=== PATIENT | male | born 1950 | race Caucasian/White ===

== ENCOUNTER 2025-07-26 17:25 | Emergency (ER) | payer OTHER, SELFPAY ==
--- NOTE | ~2025-07-26 | XR_ITS ---
EXAMINATION: XR chest 2V, 07/26/2025 18:50 METER INSTALLER AND REMOVER HISTORY: weakness COMPARISON: No comparisons available. Technique: 2 views obtained. Findings: The lungs are clear, no effusion. No pneumothorax. Heart is normal size. Mediastinal and hilar contours are within normal limits. Bony thorax no acute abnormality. Impression: No acute cardiopulmonary abnormality. Reviewed, dictated and finalized at location P. R INSTALLER AND REMOVER Impression: No acute cardiopulmonary abnormality.
--- NOTE | ~2025-07-26 | CT_ITS ---
EXAMINATION: CT brain wo joey, 07/26/2025 18:40 INSTRUCTOR HAIRSPRING HISTORY: change in mental status COMPARISON: No comparisons available. Technique: Axial images obtained of the brain without contrast. One or more of the following dose reduction techniques were used: automated exposure control, adjustment of the mA and/or kV according to patient size, use of iterative reconstruction technique. Findings: No acute infarct or parenchymal hemorrhage. No abnormal mass or mass effect. No midline shift. No extra-axial fluid collections. No hydrocephalus. Mastoid air cells unremarkable. There is severe chronic appearing right maxillary sinusitis with underlying polyp formation suspected. No acute fracture. No significant facial or scalp soft tissue swelling evident. No radiopaque foreign body is seen. Impression: 1.No acute intracranial abnormality. Reviewed, dictated and finalized at location P. RUCTOR HAIRSPRING Impression: 1.No acute intracranial abnormality.
[2025-07-26 17:26] VITALS: BP 128/97; PULSE 94; RESP 18; TEMP 36.7; O2SAT 97
--- NOTE | 2025-07-26 17:40 | ECG_ITS ---
Test Date: 2025-07-26 17:52:06 Measurements Intervals [place] Rate: 74 P: 91 [place]: 247 QRS: 98 QRSD: 158 T: -14 QT: 414 QTc: 462 Interpretive Statements SINUS RHYTHM WITH FIRST DEGREE AV BLOCK WITH FREQUENT VENTRICULAR PREMATURE COMPLEXES RIGHT BUNDLE BRANCH BLOCK [120+ ms QRS DURATION, UPRIGHT V1, 40+ ms S IN I/aVL/V4/V5/V6] No previous ECG available for comparison Electronically Signed On 07-26-2025 22:55:43 RAFTSMAN by Jennifer Ray M.D.
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
[2025-07-26 18:02] LABS: Hematocrit 41.0 % (42.0-52.0); Hemoglobin 13.3 g/dL (14.0-18.0); Immature Granulocyte Percent A 0.4 % (0-0.5); Lymphocytes Absolute Auto 1.69 K/mm3 (0.9-3.2); Mean Corpuscular HGB Conc 32.4 g/dl (32-36); Mean Corpuscular Hemoglobin 30.6 pg (26-34); Mean Corpuscular Volume 94.3 fl (80-100); Nucleated Red Blood Cells Absolute Auto 0.000 K/mm3 (0.0-0.012); Nucleated Red Blood Cells Perc 0.0 % (0.0-0.2); Platelet Count Result 181 k/mm3 (150-375); Red Blood Count 4.35 M/mm3 (4.6-6.20); White Blood Count 5.5 K/mm3 (4.5-10.0)
[2025-07-26 18:21] LABS: Acetaminophen < 10 ug/mL (10-30); Alanine Aminotransferase 23 U/L (6-50); Albumin Level 3.7 g/dL (3.5-5.1); Alkaline Phosphatase 80 U/L (38-126); Anion Gap 6 mmol/L (4-12); Aspartate Amino Transferase 23 U/L (17-59); Bilirubin,Total 0.4 mg/dL (0.2-1.3); Blood Urea Nitrogen 17 mg/dL (9-20); Calcium 8.8 mg/dL (8.4-10.2); Carbon Dioxide 27 mmol/L (22-30); Chloride 104 mmol/L (98-107); Estimated CRCL calculation 85 ml/min; Estimated Glomerular Filt Rate > 60; Glucose 125 mg/dL (65-110); Potassium 3.9 mmol/L (3.4-5.0); Salicylate < 1.0 mg/dL (2-20); Sodium 137 mmol/L (137-145); Total Protein 6.9 g/dL (6.3-8.2)
--- OUTSIDE RECORDS SUMMARY | 2025-07-26 18:36 | XMS_ITS | Encounter Summary ---
Author Organization [facility] Address [address] [place] [id number] Care Team Providers Care Dermatologist Name Role Phone Gigi Nielsen DO Primary Care Provider + Encounter Details Date Type Department Care Team (Late st Contact Info) Description 07/21/2025 Results Follow-Up [facility] Family & Internal Medicine 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 BOATBUILDER APPRENTICE Gender Identity Male 12/20/2024 8:59 AM CDT Sexual Orientation Not on file Occupation Industry Job Start Date Job End Date Not on file Not on file Not on file Not on file documented as of this encounter Plan of Treatment Upcoming Encounters Date Type Department Care Team (Late st Contact Info) Description 09/25/2025 10:20 AM WOOD BOATBUILDER APPRENTICE Office Visit [facility] Family & Internal Medicine - [place] [id number] [place] [phone] [place] [address] [place] [id number] documented as of this encounter Visit Diagnoses Not on filedocumented in this encounter Additional Health Concerns Assessment Noted Time PHQ-9 Depression Total Score: 0 09/28/19 22 11:17 AM WOOD BOATBUILDER APPRENTICE documented as of this encounter Care Teams Dermatologist Relationship Specialty Start Date End Date Gigi Nielsen DO [address] [place] [id number] PCP - General FAMILY PRACTICE 11/04/20 documented as of this encounter
--- OUTSIDE RECORDS SUMMARY | 2025-07-26 18:36 | XMS_ITS | Encounter Summary ---
Author Organization [facility] Address [address] [place] [address] Care Team Providers Care Power Plant Technician Name Role Phone Gigi Nielsen DO Primary Care Provider + Encounter Details Date Type Department Care Team (Late Contact Info) Description 07/24/2024 Eduora Message Enc [facility] Family Medicine [address], [address] [place] [phone] Tobias, [facility] Provider Colon Cancer Screening Social History Tobacco Use Types Packs/Day Years Used Date Smoking Tobacco: Never Passive Smoke Exposure: Current Smokeless Tobacco: Never Comments:na Alcohol Use Standard Drinks/Week Comments Yes 0 (1 standard drink = 0.6 oz pur e alcohol) social PHQ-2 Answer Date Recorded Patient Health Questionnaire-2 Score 0 01/19/2023 Sex and Gender Information Value Date Recorded Sex Assigned at Male 12/20/2024 8:59 AM CDT Legal Sex Male 8:15 AM HISTORIC SITE ADMINISTRATOR Gender Identity Male 12/20/2024 8:59 AM CDT Sexual Orientation Not on file Occupation Industry Job Start Date Job End Date Not on file Not on file Not on file Not on file documented as of this encounter Plan of Treatment Upcoming Encounters Date Type Department Care Team (Late Contact Info) Description 09/25/2025 10:20 AM HISTORIC SITE ADMINISTRATOR Office Visit [facility] Family & Internal Medicine [address] [phone] Gigi Nielsen DO [address] [place] [address] documented as of this encounter Visit Diagnoses Not on filedocumented in this encounter Additional Health Concerns Assessment Noted Time PHQ-9 Depression Total Score: 0 09/28/19 22 11:17 AM HISTORIC SITE ADMINISTRATOR documented as of this encounter Care Teams Power Plant Technician Relationship Specialty Start Date End Date Gigi Nielsen DO [address] [place] [id number] PCP - General FAMILY PRACTICE 11/04/20 documented as of this encounter
--- OUTSIDE RECORDS SUMMARY | 2025-07-26 18:36 | XMS_ITS | Encounter Summary ---
Author Organization [facility] Address [address] [place] [address] Care Team Providers Care Feller Machine Operator Name Role Phone Gigi Nielsen DO Primary Care Provider + Encounter Details Date Type Department Care Team (Latest Contact Info) Description 07/21/2025 Scan HEALTH INFO [facility] Scanned, Doc Med Group Social History Tobacco Use Types Packs/Day Years [...] AM CDT Legal Sex Male 8:15 AM WEB DESIGN INSTRUCTOR Gender Identity Male 12/20/2024 8:59 AM CDT Sexual Orientation Not on file Occupation Industry Job Start Date Job End Date Not on file Not on file Not on file Not on file documented as of this encounter Plan of Treatment Upcoming Encounters Date Type Department Care Team (Late st Contact Info) Description 09/25/2025 10:20 AM WEB DESIGN INSTRUCTOR Office Visit [facility] Medical [facility] Family & Internal Medicine [address] [phone] Gigi Nielsen DO [address] [place] [id number] documented as of this encounter Visit Diagnoses Not on filedocumented in this encounter Additional Health Concerns Assessment Noted Time PHQ-9 Depression Total Score: 0 09/28/19 22 11:17 AM WEB DESIGN INSTRUCTOR documented as of this encounter Care Teams Feller Machine Operator Relationship Specialty Start Date End Date Gigi Nielsen DO [address] [place] [id number] PCP - General FAMILY PRACTICE 11/04/20 documented as of this encounter
--- OUTSIDE RECORDS SUMMARY | 2025-07-26 18:36 | XMS_ITS | Clinical Summary ---
Author Organization [facility] Address [address] [place] [address] Care Team Providers Care Outpatient Coder Name Role Phone Gigi Nielsen Primary Care Provider + Allergies No known active allergies Medications Cholecalcifero l (VITAMIN D3) 25 MCG (1000 UT) CapIndications :Vitamin D deficiency Take 1,000 Int'l Units by mouth daily. 100 capsule 5 11/05/19 21 Active Additional Information Patient taking differently:1,000 Int'l Units Oral Daily,Indications: takes on occasion per , Reported on 07/21/2025 Multiple Vitamins-[place] als (MULTIVIT/MULT IMINERAL ADULT OR) Active vitamin C (ASCORBIC ACID) 1000 MG tablet Take 1 tablet (1,000 mg total) by mouth daily. 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 30 tablet 2 07/21/20 25 Active tamsulosin (FLOMAX) 0.4 MG CapIndications :Enlarged prostate Take 1 capsule (0.4 mg total) by mouth daily. 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 2024 Discontinued(P t. 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 Banerjee in March of 2024, onset of memory and thinking problems in 2017, 1st problems noted were forgetting names and people he would have known in the past. Noted problems could have began 6 years prior. Brain MRI from [facility] in [facility] in January of 2022 showed irvr-ud-[id number] small- vessel ischemic changes. Mini-mental status exam score 21/30, clinical dementia rating 2 total of box scores 2. -Diagnosis: AD -Medication: donepezil/Aricept 10 mg PVC's (premature ventricular contractions) 03/16 RBBB 03/16/2022 Vitamin D deficiency 11/04/2020 BMI 33.0-33.9,adult 11/04/2020 Noncompliance with medication regimen 08/04/2015 Hypercholesteremia 07/16/2015 Cervical spondylosis without myelopathy 10/31/19 12 Dyspepsia 10/31/2011 Resolved Problems Problem Noted Date Diagnosed Date Resolved Date Routine general medical exam ination at a health care facility 02/03/2014 10/04/2021 Encounters Date Type Department Care Team Description 07/21/2025 9:00 AM PANAMA HAT HYDRAULIC PRESS OPERATOR Office Visit [facility] [address] [phone] Gigi Nielsen, DO Alzheimer's Disease (Patient presents for routine follow up on medications. The patient maybe sleeping a little better but otherwise no changes. Abilify is another medication the would like to try. She is wanting to know if it would possibly be any cheaper. ); UTI (Frequent urination. states sx comes and goes. ) 07/21/2025 Scan [facility] Scanned, [facility] 07/21/2025 Results Follow-Up [facility] Internal [address] [phone] Gigi Nielsen, DO URINALYSIS AUTO DIP 07/21/2025 Travel 07/15/2025 [facility] Message Enc [facility] Internal [address] [phone] Gigi Nielsen, DO [facility] 07/02/2025 Telephone [facility] Internal [address] [phone] Gigi Nielsen, DO Information 06/10/2025 Telephone [facility] [address] [phone] Gigi Nielsen, DO Information 06/04/2025 Telephone [facility] [address] [phone] Gigi Nielsen, DO Referral from Last 3 Months Immunizations Immunization Administration Dates Next Due PFIZER COVID-19 (ORIGINAL FO RMULATION, PURPLE CAP) mRNA, LNP-S, PF, 30 MCG/0.3 ML DOSE 08/24/2021,10/29/2020,10/05/2020 Pneumococcal (Prevnar 20) 02/01/2022 Family History Medical History Relation Comments No Known Problems Father No Known Problems Mother Relation Status Comments Father Mother Social History Tobacco Use Types Packs/Day Years Used Date Smoking Tobacco: Never Passive Smoke Exposure: Current Smokeless Tobacco: Never Tobacco Cessation:Counseling Given: Yes Comments:na Alcohol Use Standard Drinks/Week Comments Not Currently 0 (1 standard drink = 0.6 oz pur e alcohol) social PHQ-2 Answer Date Recorded Patient Health Questionnaire-2 Score 0 12/20/2024 Sex and Gender Information Value Date Recorded Sex Assigned at Male 12/20/2024 8:59 AM CDT Legal Sex Male 8:15 AM PANAMA HAT HYDRAULIC PRESS OPERATOR Gender Identity Male 12/20/2024 8:59 AM CDT Sexual Orientation Not on file Occupation Industry Job Start Date Job End Date Not on file Not on file Not on file Not on file Last Filed Vital Signs Vital Sign Reading Time Taken Comments Blood Pressure 104/68 07/21/2025 9:03 AM PANAMA HAT HYDRAULIC PRESS OPERATOR Pulse 78 07/21/2025 9:03 AM PANAMA HAT HYDRAULIC PRESS OPERATOR Temperature 36.4 C (97.5 F) 07/21/2025 9:03 AM PANAMA HAT HYDRAULIC PRESS OPERATOR Respiratory Rate 16 07/21/2025 9:03 AM PANAMA HAT HYDRAULIC PRESS OPERATOR Oxygen Saturation 97% 07/21/2025 9:03 AM PANAMA HAT HYDRAULIC PRESS OPERATOR Inhaled Oxygen Concentration - - Weight 104.1 kg (229 lb 9.6 oz) 07/21/2025 9:03 AM PANAMA HAT HYDRAULIC PRESS OPERATOR Height 177.8 cm (5' 10) 07/21/2025 9:03 AM PANAMA HAT HYDRAULIC PRESS OPERATOR Body Mass Index 32.94 07/21/2025 9:03 AM PANAMA HAT HYDRAULIC PRESS OPERATOR Plan of Treatment Upcoming Encounters Date Type Department Care Team (Late st Contact Info) Description 09/25/2025 10:20 AM PANAMA HAT HYDRAULIC PRESS OPERATOR Office Visit [facility] Family & Internal Medicine [address] [phone] Gigi Nielsen P, DO [address] [place] [phone] Health Maintenance Due Date Last Done Comments Annual Medicare Wellness Visit 2016 Colorectal Cancer Screening Colonoscopy (10 Years) 12/20/2025 06/10/2014 Postponed from (Patient Refused) RSV Immunization or 60+ Years (1 - Risk 60-74 years 1-dose series) 12/20/2025 Postponed from 10/2010 (Going to Outside Clinic) DTaP, Tdap and Td Vaccines ( 1 - Tdap) 07/21/2026 Postponed from 05/06 (No Insurance Coverage) Influenza Adult (#1) 2026 Postpon ed from 06/04/2025 (Patient Refused) Zoster Vaccines (1 of 2) 07/21/2026 Pos tponed from 2001 (Going to Outside Clinic) COVID-19 Vaccine (4 - 2024-2 6 season) 2112 08/24/2021, 10/29/2020, 10/05/2020 Postponed from 05/05/2025 (Going to Outside Clinic) Hepatitis C Completed 02/01/2022 Pneumococcal Vaccine: 50+ Years Completed 02/01/2022 PHQ-2 (Physician [place]) Completed 12/20/2024 Hepatitis A Vaccines Aged Out No long er eligible based on patient's age to complete this topic Meningococcal B Vaccine Aged Out No l onger eligible based on patient's age to complete this topic Meningococcal Vaccine Aged Out No nidhi tee eligible based on patient's age to complete this topic RSV Immunizations Under 20 Months Aged Out No longer eligible b ased on patient's age to complete this topic Procedures Procedure Name Priority Date/Time Associated Diagnosis Comments URINALYSIS AUTO DIP Routine 07/21/2025 Frequency of urination HEPATITIS C ANTIBODY Routine 02/01/2022 10:57 AM CDT Need for hepatitis C screening test COLONOSCOPY GENERIC (SCAN ORDER) 06/10/2014 from Last 3 Months or Most Recently Relevant to Health Maintenance Results * URINALYSIS AUTO DIP (07/21/2025) COLOR (U) YELLOW YELLOW [facility] GLUCOSE (U) NEGATIVE NEGATIVE MG/DL [facility] BILIRUBIN (U) NEGATIVE NEGATIVE [facility] KETONES MG/DL (U) NEGATIVE NEGATIVE MG/DL [facility] SPECIFIC GRAVITY (U) 1.020 1.001 - 1.035 [facility] BLOOD (U) NEGATIVE NEGATIVE [facility] U PH 6.0 5.0 - 9.0 [facility] PROTEIN (U) NEGATIVE NEGATIVE mg/dL [facility] UROBILINOGEN 0.2 0.2 - 1.0 EU/dL = mg/dL [facility] NITRITES NEGATIVE NEGATIVE MG/DL [facility] LEUKOCYTES (U) NEGATIVE NEGATIVE [facility] URINE URINE SPECIMEN OBTAINED BY CLEAN CATCH PROCEDURE / Unknown 07/21/2025 Gigi Nielsen DO URINE ORDERABLES Final R esult Performing Organization Address [facility] Co de Phone Number [facility] [address] [place] [address], [place] * HEPATITIS C ANTIBODY (02/01/2022 10:57 AM CDT) HEPATITIS C AB NON-REACTI VE NON-REACT [place] 02/01/2022 9:41 PM CDT [facility] Comment: ANTIBODIES TO HCV NOT DETECTED. DOES NOT EXCLUDE THE POSSIBILITY OF EXPOSURE TO HCV. 02/01/2022 10:5 7 AM CDT Gigi Nielsen DO LABORATORY Final Re sult Performing Organization Address City/[facility]/ZIP Co de Phone Number [facility] [address] [place] [address], [phone] * COLONOSCOPY GENERIC (06/10/2014) 06/10/2014 Narrative 06/10/2014 Ordered by an unspecified provider. us Documents Scanned SCANNING Final Result from Last 3 Months or Most Recently Relevant to Health [place] [id number] Care Teams Outpatient Coder Relationship Specialty Start Date End Date Gigi Nielsen DO [address] [place] [id number] PCP - General FAMILY PRACTICE 11/04/20
--- OUTSIDE RECORDS SUMMARY | 2025-07-26 18:36 | XMS_ITS | Clinical Summary ---
Author Organization [facility] [address] Address [address] [place] [address] Care Team Providers Care Paralegal Instructor Name Role Phone Gigi Nielsen Primary Care Provide r Allergies No known active allergies Medications donepeziL (ARICEPT) 10 mg tablet Chew 1 tablet (10 mg total) daily 4 Active escitalopram (LEXAPRO) 10 mg tablet Take 1 tablet (10 mg total) by mouth daily 4 Active rosuvastatin (CRESTOR) 5 mg tablet Take 1 tablet (5 mg total) by mouth daily 4 Active promethazine-c odeine (PHENERGAN with CODEINE) 1.25-2 mg/mL syrup Take 10 mL by mouth nightly as needed 6 Active predniSONE (DELTASONE) 20 mg tablet Take 2 tablets once daily for 5 days, 1 tablet daily for 2 days, 1/2 tablet for 2 days 5 Active cimetidine (TAGAMET) 200 mg tablet Take 1 tablet (200 mg total) by mouth daily as needed Active ascorbic acid (VITAMIN C) 1,000 mg tablet Take 1 tablet (1,000 mg total) by mouth daily Active cholecalcifero l (VITAMIN D-3) 1,000 unit capsule Take 1,000 Int'l Units by mouth daily 1 Active traZODone (DESYREL) 50 mg tablet Give one tablet at bedtime for sleep and one half tablet during the day for agitation if needed 45 tablet 6 5 Active Additional Information Patient not taking.Reported on 01/20/2025 brexpiprazole (REXULTI ORAL) Take 2 mg by mouth daily Active QUEtiapine (SEROquel) 50 mg tablet Take 1 tablet (50 mg total) by mouth 2 (two) times a day 60 tablet 3 5 07/14/20 25 Discontin ued(Patie nt Reported) Active Problems Problem Noted Date Diagnosed Date Agitation 10/16/2024 Caregiver stress 10/16/2024 Assessment & Plan (10/16/2024 10:42 AM PHARMACY STOCK CLERK): PLAN: Referred to Risk Assessor Akila Nicole for resources and support, care consultation with and dtr Tia, tearful today, stressed and angry Recommended counseling, support group. Start day care at [facility] (discussed strategies to get him there and therapeutic fibbing) Paranoia 10/16/2024 Memory loss 03/22/2024 Late onset Alzheimer's disease with behavioral d isturbance 03/22/2024 Overview (10/16/2024): -He was evaluated by Dr. Banerjee in March of 2024, onset of memory and thinking problems in 2017, 1st problems noted were forgetting names and people he would have known in the past. Noted problems could have began 6 years prior. Brain MRI from [facility] in [facility] in January of 2022 showed etiz-kv-evtxpaaa small- vessel ischemic changes. Mini-mental status exam score 21/30, clinical dementia rating 2 total of box scores 2. -Diagnosis: AD -Medication: donepezil/Aricept 10 mg Assessment & Plan (01/20/2025 3:17 PM CDT): Overall, stable cognitive testing. Continue donepezil/Aricept 10 mg daily and escitalopram/Lexapro 10 mg daily. CS's main concern is his sleep. He did not tolerate trazodone which made him more confused. We will increase quetiapine/Seroquel to 50 mg BID. We can increase this to 75 mg BID in two weeks if he does not have any changes. We will consider memantine/Namenda at his next visit. Also suggested he take 5 mg of melatonin to aid with sleep. This can be increased to 10 mg nightly if the 5 mg is ineffective. Follow-up in 6 months or sooner if need be. Assessment & Plan (10/16/2024 10:43 AM PHARMACY STOCK CLERK): PLAN: Continue donepezil/Aricept 10 mg daily, move to morning. Will add Namenda/memantine next visit in 3 mo Continue Lexapro/escitalopram 10 mg daily Add quetiapine/Seroquel 12.5-25 mg BID for agitation, aggression, paranoia. Discussed AE and black box warning R/o Urinary Tract Infection (primary care provider or urgent care) Encounters Date Type Department Care Team Description 05/08/2025 Telephone [facility] [address] [place] [phone] Radha Nicole RN from Last 3 Months Surgical History Surgery Date Site/Laterality Comments TOTAL HIP ARTHROPLASTY Family History Medical History Relation Name Comments Car Accident Father Diabetes Maternal Grandmother Alzheimer's disease Mother at 84 Parkinsonism Mother Lung cancer Paternal Grandmother Relation Name Status Comments Father (Age 68) Maternal Grandmother Mother (Age 84) Paternal Grandmother Social History Tobacco Use Types Packs/Day Years Used Date Smoking Tobacco: Never Smokeless Tobacco: Never Tobacco Cessation:Counseling Given: Not Answered Alcohol Use Standard Drinks/Week Comments Yes 0 (1 standard drink = 0.6 oz pur e alcohol) Sex and Gender Information Value Date Recorded Sex Assigned at Not on file Legal Sex Male 10:49 AM PHARMACY STOCK CLERK Gender Identity Not on file Sexual Orientation Not on file Last Filed Vital Signs Vital Sign Reading Time Taken Comments Blood Pressure 119/56 01/20/2025 2:37 PM CDT Pulse 63 01/20/2025 2:37 PM CDT Temperature 36.4 C (97.5 F) 01/20/2025 2:37 PM CDT Respiratory Rate - - Oxygen Saturation 97% 01/20/2025 2:37 PM CDT Inhaled Oxygen Concentration - - Weight 100.9 kg (222 lb 8 oz) 01/20/2025 2:37 PM CDT Height 180.3 cm (5' 11) 01/20/2025 2:37 PM CDT Body Mass Index 31.03 01/20/2025 2:37 PM CDT Plan of Treatment Health Maintenance Due Date Last Done Comments Colon Cancer Screening-Colonoscopy 1950 Depression Screening 1950 Fall Risk Assessment 1950 Hepatitis C Screening 1950 DTaP/Tdap/Td Vaccine (1 - Tdap) 1962 Hepatitis B Screening 1969 Zoster Vaccine (1 of 2) 2001 Well Visit 65+ 2016 Covid-19 Vaccine ( season) 2025 08/24/2021, 10/29/2020, 10/05/2020 Influenza Vaccine (#1) 2025 Pneumococcal vaccine 65+ Completed 02/01/2022 Insurance [place] [facility] [place] [address] [facility] MEDICARE Care Teams Paralegal Instructor Relationship Specialty Start Date End Date Gigi Nielsen DO [address] [place] [id number] PCP - General Family Medicine 12/20/23
[2025-07-26 18:52] LABS: Thyroid Stimulating Hormone 1.230 uIU/mL (0.465-4.680)
[2025-07-26 19:32] VITALS: BP 124/102; PULSE 74; RESP 20; O2SAT 98
[2025-07-26 19:36] LABS: Add Urine Microscopic? NO; Appearance Urine Clear (Clear); Glucose Urine UA Negative (Negative); Leukocyte Esterase Ur Negative LEU/UL (Negative); Nitrate Urine Negative (Negative); Specific Grav Ur 1.024 (1.001-1.035)
[2025-07-26 19:57] LABS: Cannabinoid Screen Urine Negative (Negative)
--- NOTE | 2025-07-26 20:05 | PC.NURSE ---
[facility] called- no catracho psych beds
--- NOTE | 2025-07-26 20:10 | PC.NURSE ---
[facility] called. no beds
--- NOTE | 2025-07-26 20:14 | PC.NURSE ---
[facility] called- no beds
--- NOTE | 2025-07-26 20:20 | PC.NURSE ---
[facility] called- no catracho psych
--- NOTE | 2025-07-26 20:22 | PC.NURSE ---
[facility] called- no intake on week ends
--- NOTE | 2025-07-26 20:25 | PC.NURSE ---
[facility] called- no beds
--- NOTE | 2025-07-26 20:29 | PC.NURSE ---
[facility] called- no beds
--- NOTE | 2025-07-26 20:29 | PC.NURSE ---
[facility] called- no dementia patients
[2025-07-26] MEDS: diazePAM (*CRX) 5 MG TABLET PO (21:17)
[2025-07-26 21:20] VITALS: BP 104/68; PULSE 54; RESP 16; TEMP 37.1; O2SAT 96
== END 2025-07-26 21:40 | disposition home or self-care (01) ==
PROVIDERS: Emergency Provider Emergency Medicine; PCP Anesthesiology
DX: F03.90 Unspecified dementia, unspecified severity, without behavioral disturbance, psychotic disturbance, mood disturbance, and anxiety (principal); F03.911 Unspecified dementia, unspecified severity, with agitation
CPT/HCPCS: 36415; 70450; 71046; 80053; 80143; 80179; 80307; 81003; 82077; 84443; 85025; 93005; 99284; A9270